=== PATIENT | male | born 1995 | race Caucasian/White ===

== ENCOUNTER 2024-10-02 19:20 | Emergency (ER) | payer BC, SELFPAY ==
--- NOTE | ~2024-10-02 | XR_ITS ---
XR hand RT min 3V 10/02/2024 19:54 INDICATION: Laceration. Evaluate for glass. PROCEDURE: 3 views right hand COMPARISON: No prior studies for comparison. FINDINGS: Fracture, dislocation or subluxation is not identified. The soft tissues appear within norm al limits. No foreign bodies are identified. IMPRESSION: 1: No acute abnormality. No evidence for radiopaque foreign bodies. Reviewed, dictated and finalized at location A. [facility]
[2024-10-02 19:25] VITALS: BP 125/69; PULSE 68; RESP 14; TEMP 36.6; O2SAT 100
[2024-10-02] MEDS: LIDOCAINE 1% LOCAL INJ 20 ML VIAL 5 ML INFILTRATE (19:54)
--- NOTE | 2024-10-02 20:43 | ED_ITS ---
HPI - Wound/Laceration General Chief Complaint: Wound/Laceration Stated Complaint: R hand lac Time Seen by Provider: 10/02/24 19:28 Source: patient Mode of arrival: ambulatory Limitations: no limitations History of Present Illness HPI narrative: Patient is a 29 y/o male who presents to the ED with c/o lacerations to his R hand. Patient reports he was washing a glass top were container when the glass shattered. He sustained a few small lacerations to his right hand, palm, 5th digit. Bleeding is controlled upon my evaluation. He denies any other injuries. Tetanus up-to-date. No numbness. Full range of motion of fingers. Related Data Allergies Allergy/AdvReac Type Severity Reaction Status Date / Time shellfish derived Allergy Intermediate Diarrhea Verified 10/02/24 19:24 Review of Systems Review of Systems: All systems reviewed & are unremarkable except as noted in HPI. All systems reviewed & are unremarkable except as noted in HPI and below Exam Narrative: GENERAL: Well appearing, well-nourished, non-toxic, in no acute distress. HEAD: Normocephalic, atraumatic. RESPIRATORY: Airway patent, respirations nonlabored. CARDIOVASCULAR: Regular rate and rhythm without murmurs, rubs, or gallops. Radial pulses strong and easily palpable MUSCULOSKELETAL: Moves all extremities. No gross deformities. SKIN: Warm, dry, normal color. Two small lacerations, linear but somewhat jagged, to mid palm of R hand with minimal active bleeding. Curvilinear superficial laceration to R 5th digit finger pad without active bleeding. NEURO: A&O X3. Speech clear. PSYCHIATRIC: Appropriate mood and affect. Normal interaction. Course Vital Signs Vital signs: Vital Signs Temperature 98 F 10/02/24 19:25 Pulse Rate 68 10/02/24 19:25 Respiratory Rate 14 10/02/24 19:25 Blood Pressure 125/69 10/02/24 19:25 Pulse Oximetry 100 10/02/24 19:25 Oxygen Delivery Room Air 10/02/24 19:25 Temperature 98 F 10/02/24 19:25 Pulse Rate 68 10/02/24 19:25 Respiratory Rate 14 10/02/24 19:25 Blood Pressure 125/69 10/02/24 19:25 Pulse Oximetry 100 10/02/24 19:25 Oxygen Delivery Room Air 10/02/24 19:25 Procedures Laceration Laceration 1: Date: 10/02/24 Time: 20:50 Site: hand Side (If applicable): right Size (cm): 2 Description: linear Depth: simple, single layer Local Anesthetic: lidocaine 1% Amount of anesthesia used (mL): 5 Pre-repair: wound explored and irrigated ====== Skin Level ====== Skin layer closed with: nylon Size (cm): 5-0 Number of sutures: 6 Technique: simple, interrupted ====== Subcutaneous Layer ====== ====== Muscle Layer ====== ====== Tendon Layer ====== Laceration 2: Date: 10/02/24 Time: 20:55 Site: hand Side (If applicable): right Size (cm): 2 Description: linear Depth: simple, single layer Local Anesthetic: lidocaine 1% Pre-repair: wound explored and irrigated ====== Skin Level ====== Skin layer closed with: nylon Size (cm): 5-0 Number of sutures: 6 Technique: simple, interrupted ====== Subcutaneous Layer ====== ====== Muscle Layer ====== ====== Tendon Layer ====== Laceration 3: Date: 10/02/24 Time: 20:45 Site: hand Side (If applicable): right (5th digit) Size (cm): 1 Description: linear Depth: simple, single layer Local Anesthetic: none Pre-repair: wound explored and irrigated ====== Skin Level ====== Skin layer closed with: dermabond ====== Subcutaneous Layer ====== ====== Muscle Layer ====== ====== Tendon Layer ====== MDM - Wound/Laceration MDM Narrative Medical decision making narrative: XR w/o evidence of FB. Neurovascularly intact. Lacerations repaired w/o complications. Finger lac was dermabonded. Procedures performed by Dr. Sandoval. Tetanus up-to-date. Patient given wound care instructions and reasons to return. Medical Records Attestation: I reviewed the patient's medical records. Imaging Data Attestation: I personally reviewed and interpreted this imaging study as fol lows: Radiologist's impression: ITS Impressions Hand X-Ray 10/02/24 19:57 IMPRESSION: 1: No acute abnormality. No evidence for radiopaque foreign bodies. Discharge Plan Discharge Clinical Impression: Laceration of right hand Qualifiers: Encounter type: initial encounter Foreign body presence: without foreign body Qualified Code(s): S61.411A - Laceration without foreign body of right hand, initial encounter Laceration of finger of right hand Qualifiers: Encounter type: initial encounter Finger: little finger Damage to nail status: without damage Foreign body presence: without foreign body Qualified Code(s): S61.216A - Laceration without foreign body of right little finger without damage to nail, initial encounter Patient Disposition: Home, Self-Care Condition: Stable Instructions: Antibiotic Form, Care For Your Stitches (ED), Laceration (ED) Additional Instructions: Return to the ED or visit an urgent care or your PCP for follow-up and wound check/suture removal in 10 to 14 days. Keep the wound as dry as possible for 24 hours. You may remove the bandage after 24 hours and wash with simple soap and water, but do not scrub. Return to the ED if you experience uncontrolled bleeding, fever, chills, pus-like drainage, or redness/swelling/warmth surrounding the wound, as these could be signs of an infection. Patient Language: Surinamese Follow-up/Referrals: UNKNOWN,DOCTOR [Primary Care Provider] -
== END 2024-10-02 21:22 | disposition home or self-care (01) ==
PROVIDERS: Emergency Provider Physician Assistant
DX: S61.411A Laceration without foreign body of right hand, initial encounter (principal); S61.216A Laceration without foreign body of right little finger without damage to nail, initial encounter; W25.XXXA Contact with sharp glass, initial encounter
CPT/HCPCS: 12002; 73130; 99283; J2003